=== PATIENT | female | born 1980 | race Caucasian/White ===

== ENCOUNTER 2018-05-06 12:17 | Emergency (ER) | payer OTHER ==
--- NOTE | 2018-05-06 15:24 | RAD ---
AP PELVIS ONE VIEW: 05/06/18 HISTORY: 37-year-old female with history of IUD replaced on Tuesday. Has been uncomfortable with concern for IUD position placement. IUD is seen within a normal expected location within the midline of the pelvis. IMPRESSION: Unremarkable IUD position on this AP pelvis study. POS: [id number]
== END 2018-05-06 14:12 | disposition home or self-care (01) ==
LOC: ERS 12:17
DX: T83.32XA Displacement of intrauterine contraceptive device, initial encounter (principal); F41.9 Anxiety disorder, unspecified; F31.9 Bipolar disorder, unspecified; F17.210 Nicotine dependence, cigarettes, uncomplicated; G43.909 Migraine, unspecified, not intractable, without status migrainosus
CPT/HCPCS: 72170